=== PATIENT | male | born 1980 | race Caucasian/White ===

== ENCOUNTER → 2016-07-12 | Outpatient (CLI) | payer OTHER ==
--- NOTE | 2016-07-13 16:04 | RADIOLOGY REPORT ---
STRESS TEST REPORT [id number] ROOM#: DATE OF SERVICE: 07/12/2016 AGE: 36Y ORDER#: [id number] REFERRING MD: CARLY CORBIN [facility] INDICATION: For assessment of chest pains and palpitations. PROCEDURE PERFORMED: REST/STRESS SINGLE ISOTOPE CARDIOLITE SPECT IMAGING WITH EXERCISE STRESS AND GATED SPECT IMAGING CLINICAL HISTORY: This is a 36-year-old male with no known coronary artery disease and has no cardiac risk factors. Current symptomatology includes retrosternal chest pains and irregular heartbeats at night. REPORT: Patient performed treadmill exercise using a standard Dereck protocol and walked a total of 10 minutes, completing an estimated workload of 11 METS. Resting heart rate was 70 bpm and increased to 171 bpm at peak exercise, which was 93% of the maximum predicted heart rate for age. The blood pressure response to exercise was normal. Resting blood pressure was 126/78 and increased to 162/79 at peak exercise. The patient did not develop any symptoms of chest pain and no complaint of palpitations. The resting 12-lead EKG showed normal sinus rhythm, right axis deviation, and ST segments were normal. At peak exercise, [address] depression was seen in leads II, III, AVF and V4 to V6. Three PVCs were seen during exercise, but they were not symptomatic. Myocardial perfusion imaging was performed at rest 60 minutes following the injection of 12.58 mCi of Cardiolite. At peak exercise, patient was injected with 39.7 mCi of Cardiolite and exercise continued for one more minute. Gated post stress tomographic imaging was performed 60 minutes after stress. FINDINGS: The overall quality of the study is fair. The left ventricular cavity is noted to be normal in size on both the rest and stress studies. There is no evidence of abnormal transient ischemic dilatation of the left ventricle. SPECT images showed a small area of mild reversible ischemia in the apex of the left ventricle and a small area of moderately severe reversible ischemia in the basal inferior wall. There is no fixed perfusion defect. Gated SPECT imaging showed reduced motion and contraction of the basal inferior wall. The left ventricular ejection fraction was calculated to be 51%. IMPRESSION: 1. MYOCARDIAL PERFUSION IMAGING IS ABNORMAL. 2. TWO AREAS OF REVERSIBLE ISCHEMIA = A SMALL ONE IN THE APEX AND THIS IS MILD; A SLIGHTLY LARGER ONE WITH MODERATELY SEVERE REVERSIBLE ISCHEMIA, TOTALLY REVERSIBLE, IN THE BASAL INFERIOR WALL. NO FIXED DEFECT, OVERALL 3. LEFT VENTRICULAR SYSTOLIC FUNCTION WAS LOW NORMAL AT 51% WITH 4. REGIONAL WALL MOTION ABNORMALITY SEEN IN THE BASAL INFERIOR WALL. 5. NO PRIOR STUDY FOR COMPARISON. 6. CLINICAL CORRELATION IS RECOMMENDED. INTERPRETING PHYSICIAN: RADHA HULL M.D. /: PARAS TT: [id number] ID: [id number] /: [id number] TD: [id number] JOB: [id number] cc:Harry BARTLETT FNP > [facility]
== END ==
LOC: RAD 06:13
PROVIDERS: ATTEND Nurse Practitioner
DX: R07.89 Other chest pain (principal)
CPT/HCPCS: 93017; 78452; A9500; Q9969